=== PATIENT | male | born 1985 | race Caucasian/White ===

== ENCOUNTER 2019-11-24 17:15 | Emergency (ER) | payer OTHER ==
[~2019-11-24] VITALS: Ht 180.3 cm; Wt 90.9 kg
--- NOTE | 2019-11-24 17:20 | NUR ---
Patient arrived to bed 26 at this time. Tom CORRAL at bedside.
[2019-11-24] MEDS ORDERED: LORazepam 1 MG tablet PO ONE (17:30)
[2019-11-24 17:50] LABS: BASOPHILS # (AUTO) 0.1 X10'3 (0-0.2); EOSINOPHILS # (AUTO) 0.3 X10'3 (0-0.9); EOSINOPHILS % (AUTO) 2.9 % (0-6); HEMATOCRIT 40.4 % (42.0-52.0); HEMOGLOBIN 13.8 g/dl (14.0-17.9); LYMPHOCYTES # (AUTO) 2.1 X10'3 (1.1-4.8); LYMPHOCYTES % (AUTO) 18.7 % (21-51); MEAN CORPUSCULAR HEMOGLOBIN 29.2 PG (27.0-31.0); MEAN CORPUSCULAR HGB CONC 34.1 g/dL (33.0-36.5); MEAN CORPUSCULAR VOLUME 85.7 FL (78-98); MEAN PLATELET VOLUME 7.9 FL (7.4-10.4); MONOCYTES % (AUTO) 9.2 % (2-12); NEUTROPHILS # (AUTO) 7.5 X10'3 (1.8-7.7); NEUTROPHILS % (AUTO) 68.2 % (42-75); PLATELET COUNT 248 X10'3 (140-440); RED BLOOD COUNT 4.71 X10'6 (4.70-6.10)
[2019-11-24 17:59] LABS: CLARITY,URINE CLEAR (Clear); COLOR,URINE YELLOW (Yellow); GLUCOSE, URINE NEGATIVE (Neg); KETONES,URINE TRACE mg/dl (Neg); LEUKOCYTE ESTERASE ,URINE NEGATIVE (Neg); NITRITES, URINE NEGATIVE (Neg); OCCULT BLOOD,URINE NEGATIVE (Neg); PROTEIN,URINE NEGATIVE (Neg); UROBILINOGEN,URINE 0.2 E.U/dL (0.2-1.0)
[2019-11-24 18:00] LABS: UA COLLECTION TYPE CLN CATCH MIDSTREAM
[2019-11-24 18:07] LABS: ALANINE AMINOTRANSFERASE 22 U/L (12-78); ALBUMIN 3.9 G/DL (3.4-5.0); ALBUMIN/GLOBULIN RATIO 1.1 (1.1-1.5); ALKALINE PHOSPHATASE 125 IU/L (46-116); ANION GAP 7 (8-16); ASPARTATE AMINO TRANSFERASE 17 U/L (10-37); BILIRUBIN,TOTAL 0.4 MG/DL (0.1-1.0); BLOOD UREA NITROGEN 9 MG/DL (7-18); BUN/CREATININE RATIO 7.1 (5.4-32.0); CALCIUM 9.2 MG/DL (8.5-10.1); CHLORIDE 104 MMOL/L (99-107); CREATININE 1.26 MG/DL (0.60-1.10); ETHANOL < 0.010 GM/DL (0.0-0.010); GLUCOSE 88 MG/DL (70-104); POTASSIUM 3.5 MMOL/L (3.5-5.1); SODIUM 138 MMOL/L (135-145); TOTAL CARBON DIOXIDE 27.1 MMOL/L (24-32); TOTAL PROTEIN 7.5 G/DL (6.4-8.2); eGFR 66 ML/MIN
[2019-11-24 18:09] LABS: URINE AMPHETAMINE SCREEN NEGATIVE (Neg); URINE BARBITUATE SCREEN NEGATIVE (Neg); URINE BENZODIAZEPINES SCREEN NEGATIVE (Neg); URINE CANNABINOID SCREEN POSITIVE (Neg); URINE COCAINE SCREEN NEGATIVE (Neg); URINE METHADONE SCREEN NEGATIVE (Neg); URINE OPIATE SCREEN NEGATIVE (Neg); URINE PHENCYCLIDINE SCREEN NEGATIVE (Neg)
--- NOTE | 2019-11-24 18:30 | NUR ---
Patient attempting to sleep supine. No distress observed. Continue to monitor.
--- NOTE | 2019-11-24 19:20 | NUR ---
RN advised patient that his dinner tray was here. Patient stated he would eat it latter. No distress observed. continue to monitor.
[2019-11-24] MEDS ORDERED: SERT50TA PO (20:07)
[2019-11-24] MEDS ORDERED: QUET-1 PO (20:07)
--- NOTE | 2019-11-24 20:15 | NUR ---
RN spoke to patient about his medications he gets. Patient [facility] RN to complete Med Rec. Continue to monitor.
[2019-11-24] MEDS ORDERED: quetiapine 100mg tablet PO SCH (21:00)
[2019-11-24] MEDS ORDERED: sertraline 50mg tablet PO SCH (21:07)
--- NOTE | 2019-11-24 21:42 | NUR ---
Patient sleeping on right side. No distress observed. Continue to monitor.
--- NOTE | 2019-11-24 23:43 | NUR ---
Patient sleeping on right side. No restlessness observed. Continue to montor.
--- NOTE | 2019-11-25 02:26 | NUR ---
patient sleeping undisturbed
[2019-11-25 06:07] VITALS: BP 109/64
--- NOTE | 2019-11-25 12:30 | NUR ---
pt at nurses desk requesting medication. pt states, im getting anxious and my thoughts are starting to escalate.
--- NOTE | 2019-11-25 12:37 | NUR ---
informed dr. payton of above. please see new orders.
[2019-11-25] MEDS ORDERED: OLANZapine 5mg rapidly disint. tablet PO ONE (12:40)
[2019-11-25] MEDS ORDERED: MIDAZolam 1mg/ml 10ml vial IM ONE (13:35)
[2019-11-25] MEDS ORDERED: midazolam 2 mg/2 ml injection IM ONE (13:40)
[2019-11-25] MEDS ORDERED: MIDAZolam 5mg/ml 2ml vial IM ONE (13:40)
--- NOTE | 2019-11-25 15:08 | NUR ---
PT IS SLEEPING QUIETLY.
[2019-11-28] MEDS ORDERED: TRAZ-251 PO (09:56)
[2019-11-28] MEDS ORDERED: HYDR-3686 PO (09:56)
[2019-11-28] MEDS ORDERED: OXCA150T14 PO (09:56)
== END 2019-11-25 16:10 ==
LOC: ER 17:16
DX: R45.851 Suicidal ideations (principal); F43.10 Post-traumatic stress disorder, unspecified; F22 Delusional disorders; F41.9 Anxiety disorder, unspecified; F32.9 Major depressive disorder, single episode, unspecified; Z88.1 Allergy status to other antibiotic agents; Z79.899 Other long term (current) drug therapy
CPT/HCPCS: 36415; 80053; 80305; 80320; 81003; 85025; 96372; 99285; J2250; 99284

== ENCOUNTER 2020-04-28 16:38 | Emergency (ER) | payer OTHER ==
[~2020-04-28] VITALS: Ht 180.3 cm; Wt 90.9 kg
[~2020-04-28 16:38] MED LIST: HYDR-3686 PO; OXCA150T14 PO; QUET-1 PO; SERT50TA PO; TRAZ-251 PO
[2020-04-28 18:28] LABS: ALANINE AMINOTRANSFERASE 25 U/L (12-78); ALBUMIN/GLOBULIN RATIO 1.1 (1.1-1.5); ALKALINE PHOSPHATASE 129 IU/L (46-116); ANION GAP 6 (8-16); ASPARTATE AMINO TRANSFERASE 21 U/L (10-37); BILIRUBIN,TOTAL 0.3 MG/DL (0.1-1.0); BLOOD UREA NITROGEN 16 MG/DL (7-18); BUN/CREATININE RATIO 14.4 (5.4-32.0); CHLORIDE 107 MMOL/L (99-107); CREATININE 1.11 MG/DL (0.60-1.10); GLUCOSE 89 MG/DL (70-104); POTASSIUM 3.8 MMOL/L (3.5-5.1); SODIUM 141 MMOL/L (135-145); TOTAL CARBON DIOXIDE 28.5 MMOL/L (24-32); TOTAL PROTEIN 7.6 G/DL (6.4-8.2); eGFR 77 ML/MIN
[2020-04-28 18:32] LABS: BASOPHILS # (AUTO) 0.1 X10'3 (0-0.2); BASOPHILS % (AUTO) 0.7 % (0-1); EOSINOPHILS # (AUTO) 0.3 X10'3 (0-0.9); EOSINOPHILS % (AUTO) 2.9 % (0-6); HEMATOCRIT 42.6 % (42.0-52.0); HEMOGLOBIN 14.8 g/dl (14.0-17.9); LYMPHOCYTES # (AUTO) 3.1 X10'3 (1.1-4.8); MEAN CORPUSCULAR HEMOGLOBIN 29.1 PG (27.0-31.0); MEAN CORPUSCULAR HGB CONC 34.8 g/dL (33.0-36.5); MEAN CORPUSCULAR VOLUME 83.7 FL (78-98); MEAN PLATELET VOLUME 7.9 FL (7.4-10.4); MONOCYTES # (AUTO) 0.8 X10'3 (0-0.9); MONOCYTES % (AUTO) 8.7 % (2-12); NEUTROPHILS # (AUTO) 5.3 X10'3 (1.8-7.7); NEUTROPHILS % (AUTO) 55.7 % (42-75); PLATELET COUNT 251 X10'3 (140-440); RED BLOOD COUNT 5.09 X10'6 (4.70-6.10); RED CELL DISTRIBUTION WIDTH 13.4 % (11.5-14.5); WHITE BLOOD COUNT 9.5 X10'3 (4.5-11.0)
[2020-04-28] MEDS ORDERED: mirtazapine 15mg tablet PO SCH (21:00)
[2020-04-28] MEDS ORDERED: quetiapine 100mg tablet PO SCH (21:00)
[2020-04-28 21:52] LABS: CLARITY,URINE CLEAR (Clear); COLOR,URINE YELLOW (Yellow); GLUCOSE, URINE NEGATIVE (Neg); KETONES,URINE NEGATIVE (Neg); LEUKOCYTE ESTERASE ,URINE NEGATIVE (Neg); NITRITES, URINE NEGATIVE (Neg); OCCULT BLOOD,URINE NEGATIVE (Neg); PROTEIN,URINE NEGATIVE (Neg); UROBILINOGEN,URINE 0.2 E.U/dL (0.2-1.0)
[2020-04-28 21:53] LABS: UA COLLECTION TYPE CLN CATCH MIDSTREAM
--- NOTE | 2020-04-28 22:03 | NUR ---
PT MOVED TO BED 15
[2020-04-28] MEDS ORDERED: MIRT30TA8 PO (22:06)
[2020-04-28 22:10] LABS: URINE AMPHETAMINE SCREEN NEGATIVE (Neg); URINE BARBITUATE SCREEN NEGATIVE (Neg); URINE BENZODIAZEPINES SCREEN NEGATIVE (Neg); URINE CANNABINOID SCREEN POSITIVE (Neg); URINE COCAINE SCREEN NEGATIVE (Neg); URINE METHADONE SCREEN NEGATIVE (Neg); URINE OPIATE SCREEN NEGATIVE (Neg); URINE PHENCYCLIDINE SCREEN NEGATIVE (Neg)
--- NOTE | 2020-04-28 22:16 | NUR ---
completed 1:1 bedside assessment with pt. pt reports that he has multiple psychiatric diagnoses of schizophrenia, anxiety, depression, and PTSD "from the war." pt says he served in the [employer] for 7 years. pt states he has suicidal thoughts with no current plan. states he normally has a plan that would be "painless" when at home which is why he came here. states he does have intermittent homicical ideation when he becomes "uncontrollable" and "manic." currently denies any HI during this assessment. endorses self harming thoughts when at home and has joint dowling on bilateral forearms that show no s/s infection at this time and appear pink and healing. endorses intermittent auditory and visual hallucinations of multiple voices that are command hallucinations for harm. pt reports "at this moment" no current auditory or visual hallucinations. reports difficulty sleeping. ed yas israel made aware of pt being medium risk and no 1:1 observation required at this time. pt is line of sight of nurses station and charge nurse station. is calm and cooperative with staff and complies with all requests. is laying in bed reqesting his nightly medication. ed yas israel made aware of pt request for medications and will be ordered by yas
[2020-04-28] MEDS ORDERED: acetaminophen 325mg tablet PO ONE (23:25)
--- NOTE | 2020-04-28 23:34 | NUR ---
pt opened room doors and stated feeling "extremely anxious, my head feels crazy" and also of a 7/10 headache. informed ed yas brewer who verbally ordered tylenol 650mg po x1 dose now and ativan 1mg po x1 dose now. orders placed as received
[2020-04-28] MEDS ORDERED: LORazepam 1 MG tablet PO ONE (23:35)
--- NOTE | 2020-04-29 05:36 | NUR ---
packet faxed to [facility]
[2020-04-29 08:40] LABS: ETHANOL < 0.010 GM/DL (0.0-0.010)
--- NOTE | 2020-04-29 09:52 | NUR ---
BONNIE ELLISON EVALUATED PT. PLACED ON A HOLD.
--- NOTE | 2020-04-29 12:33 | NUR ---
PT SLEEPING MOST OF DAY
--- NOTE | 2020-04-29 13:49 | NUR ---
MARLON FROM [facility] CALLED. TENTATIVE ADMISSION TO [facility] IN [place]. REQUESTING COVID SWAB AND CURRENT VITAL SIGNS.
--- NOTE | 2020-04-29 14:05 | NUR ---
COVID SWAB COLLECTED LEFT CIVIL DRAFTER
[2020-04-29 14:09] VITALS: BP 106/66
--- NOTE | 2020-04-29 15:17 | NUR ---
covid results and current vital signs faxed to jennifer at [place] office.
--- NOTE | 2020-04-29 16:37 | NUR ---
PT ACCEPTED TO [facility] BY DR. VALLE AT 1630 Addendum: 04/29/20 at 1638 by [email or web address] NURSE TO [phone] CHRIS
--- NOTE | 2020-04-29 17:46 | NUR ---
TRANSPORT PERSON FROM [facility] AT BEDSIDE TO TRANSPORT PT TO HOSPITAL. ESCORTED OUT WITH SECURITY.
[2020-04-29] MEDS ORDERED: quetiapine 100mg tablet PO SCH (21:00)
== END 2020-04-29 17:49 | disposition home or self-care (01) ==
LOC: ER 16:38
DX: R45.851 Suicidal ideations (principal); Z20.822 Contact with and (suspected) exposure to COVID-19; F41.9 Anxiety disorder, unspecified; F32.9 Major depressive disorder, single episode, unspecified; Z88.1 Allergy status to other antibiotic agents; Z79.899 Other long term (current) drug therapy
CPT/HCPCS: 36415; 80053; 80305; 80320; 81003; 84443; 85025; 87426; 99285